=== PATIENT | female | born 1960 | race Caucasian/White ===

== ENCOUNTER 2022-10-13 15:05 | Emergency (ER) | payer MEDICAID ==
[~2022-10-13] VITALS: Ht 160 cm; Wt 73.9 kg
[2022-10-13 15:05] VITALS: BP_SYST 132
--- NOTE | 2022-10-13 15:10 | NUR ---
Patient triaged and placed in waiting room. VSS and patient appears in no acute distress at this time. Accompanied by DAUGHTER, awaiting available bed, and MD notified of need for MSE.
--- NOTE | 2022-10-13 16:20 | NUR ---
Patient to ER bed 08 to gown for evaluation. Side rails up. Report given to CONY ESTRADA.
--- NOTE | 2022-10-13 16:29 | NUR ---
PATIENT BROUGHT IN WITH DAUGHTER COMPLAINING OF LEFT SIDED HEADACHE RADIATING TO HER BACK, DIZZINESS, AND LEFT SIDE FACIAL SWELLING SINCE YESTERDAY AT 1700. PATIENT REPORTS TAKING 2 TABLETS OF MOTRIN 600 MG YESTERDAY WITH NO RELIEF. PATIENT REPORTS THAT THE PAIN IS THROBBING. HX OF HYPOTHYROIDISM AND HYPERTENSION. PAIN 03/17
[2022-10-13] MEDS ORDERED: KETOROLAC TROMETHAMINE 60 MG/2 ML VIAL IM ONE (17:30)
--- NOTE | 2022-10-13 17:39 | NUR ---
ER Dr. JUSTICE at bedside examining patient.
[2022-10-13] MEDS ORDERED: IBUP-1971 PO (17:54)
[2022-10-13] MEDS ORDERED: OXYC-128 PO (17:54)
--- NOTE | 2022-10-13 18:10 | NUR ---
PATIENT STILL COMPLAINING OF HEACHACHE. PAIN 05/17. DR. RUSH INFORMED AND NEW ORDERS RECEIVED
[2022-10-13] MEDS ORDERED: NACL 0.9% 1,000 ML IV ONE (18:15)
[2022-10-13] MEDS ORDERED: ONDANSETRON HCL 4 MG/2 ML VIAL IVP ONE (18:15)
[2022-10-13] MEDS ORDERED: MORPHINE 4 MG INJ. 4 MG/ML VIAL IVP ONE (18:15)
--- NOTE | 2022-10-13 18:19 | NUR ---
# 20 gauge angiocath placed to RAC. Use of asceptic technique. Opsite placed over site. Blood return noted. Blood for lab drawn from site. Flushed with 10 cc of normal saline. No evidence of infiltration noted. Patient tolerated well.
[2022-10-13 18:33] LABS: BASOPHILS # (AUTO) 0.1 K/uL (0.0-0.2); BASOPHILS % (AUTO) 0.7 % (0.0-2.0); EOSINOPHILS # (AUTO) 0.2 K/uL (0.0-0.4); EOSINOPHILS % (AUTO) 1.9 % (0.0-4.0); HEMATOCRIT 38.3 % (36-48); LYMPHOCYTES % (AUTO) 36.6 % (20.5-51.5); MEAN CORPUSCULAR HEMOGLOBIN 30 pg (27-31); MEAN CORPUSCULAR HGB CONC 34 % (32-36); MEAN CORPUSCULAR VOLUME 88 fL (79.0-98.0); MONOCYTES # (AUTO) 0.7 K/uL (0.0-1.0); MONOCYTES % (AUTO) 8.7 % (1.7-9.3); NEUTROPHILS # (AUTO) 4.3 K/uL (1.8-7.7); NEUTROPHILS % (AUTO) 52.1 % (40.0-70.0); PLATELET COUNT (AUTO) 146 K/uL (130-430); RED BLOOD CELL COUNT(AUTO) 4.35 MIL/uL (4.2-6.2); RED CELL DISTRIBUTION WIDTH 12.9 % (9.0-15.0); WHITE BLOOD COUNT (AUTO) 8.2 K/uL (4.8-10.8)
--- NOTE | 2022-10-13 18:40 | NUR ---
PATIENT OFF UNIT TO CT SCAN
--- NOTE | 2022-10-13 19:05 | NUR ---
REC REPORT FROM CONY ESTRADA.
--- NOTE | 2022-10-13 19:15 | NUR ---
PT RESTING IN BED AWAKE AND ALERT, DAUGHTER AT BEDSIDE. PT DENIES HAVING ANY PAIN AND DISCOMFORT AT THIS TIME, REPORTS PAIN HAS SUBSIDED SINCE MEDICATION ADMINISTRATION. VSS. SAFETY PRECAUTIONS IN PLACE AND CONNECTED TO MONITOR.
[2022-10-13 19:27] LABS: ALBUMIN 3.7 g/dL (3.4-4.8); CALCIUM 9.2 mg/dL (8.4-11.0); CREATININE 0.96 mg/dL (0.55-1.30); TOTAL BILIRUBIN 0.3 mg/dL (0.0-1.0)
[2022-10-13] MEDS ORDERED: CEPH-548 PO (20:56)
[2022-10-13 21:05] VITALS: BP_SYST 135
--- NOTE | 2022-10-13 21:05 | NUR ---
Patient given written and verbal discharge instructions and verbalizes understanding. ER DR. MILLARD discussed with patient the results and treatment provided. Patient in stable condition. ID arm band removed. IV catheter removed intact and dressing applied, no active bleeding. Rx of CEPHALEXIN, IBUPROFEN, AND PERCOCET given. Patient educated on pain management and to follow up with PMD. Pain Scale 0. Opportunity for questions provided and answered. Medication side effect fact sheet provided.
== END 2022-10-13 21:05 | disposition home or self-care (01) ==
LOC: SED 15:05
DX: R59.1 Generalized enlarged lymph nodes (principal); R51.9 Headache, unspecified; H57.12 Ocular pain, left eye; I10 Essential (primary) hypertension; Z79.899 Other long term (current) drug therapy
CPT/HCPCS: 99285; 96374; 70486; 96361; 96375; 80053; 85025; 36415; 76376; 96372; J1885; J2405; J2270; J7030